=== PATIENT | male | born 1980 | race Caucasian/White ===

== ENCOUNTER 2024-10-18 13:30 | Emergency (ER) | payer OTHER ==
[~2024-10-18] VITALS: Ht 167.6 cm; Wt 60.5 kg
[2024-10-18 13:33] VITALS: BP 101/73; PULSE 95; RESP 18; TEMP 98; O2SAT 97
[2024-10-18] MEDS: ACETAMINOPHEN 325 MG TABLET PO ONE (14:29)
== END 2024-10-18 15:00 | disposition home or self-care (01) ==
LOC: EMS 13:32
DX: S83.91XA Sprain of unspecified site of right knee, initial encounter (principal); S83.92XA Sprain of unspecified site of left knee, initial encounter; F20.9 Schizophrenia, unspecified; E11.9 Type 2 diabetes mellitus without complications; W01.0XXA Fall on same level from slipping, tripping and stumbling without subsequent striking against object, initial encounter; Y93.89 Activity, other specified; Y92.89 Other specified places as the place of occurrence of the external cause; Y99.8 Other external cause status
CPT/HCPCS: 99283